=== PATIENT | male | born 1945 | race Hispanic/Latino ===

== ENCOUNTER 2019-04-07 08:27 | Day surgery (SDC) | payer MEDICARE ==
[2019-04-05 17:49] VITALS: BP 160/81
[2019-04-05 17:49] LABS: HEMATOCRIT 40.4 % (42-54); LYMPHOCYTES % (AUTO) 25.9 % (21.0-51.0); MEAN CORPUSCULAR HEMOGLOBIN 32.9 pg (27.0-33.0); MEAN CORPUSCULAR HGB CONC 34.1 g/dL (32.0-36.0); MEAN CORPUSCULAR VOLUME 96.5 fL (79-99); MONOCYTES % (AUTO) 7.8 % (3.0-13.0); NEUTROPHILS % (AUTO) 59.3 % (40.0-77.0); PLATELET COUNT (AUTO) 179 K/uL (130-400); RED BLOOD CELL COUNT(AUTO) 4.19 MIL/uL (4.50-6.20); RED CELL DISTRIBUTION WIDTH 13.6 % (11.0-15.5); WHITE BLOOD COUNT (AUTO) 5.7 K/uL (4.8-10.8)
[2019-04-05 17:56] LABS: CREATININE 1.2 mg/dL (0.5-1.5); POTASSIUM 4.6 mmol/L (3.5-5.1)
--- NOTE | 2019-04-05 18:39 | NUR ---
MEDS PT DID NOT BRING MEDS, STATED HE HAS NOT TAKEN HIS MEDS FOR 2 WEEKS, BP MED MAKES HIM FEEL BAD. ADVISED PT/DAUGHTER TO NOTIFY PCP THAT PT HAS NOT BEEN TAKING MEDS. DAUGHTER WILL CALL US FOR PT'S MEDS.
--- NOTE | 2019-04-05 18:52 | NUR ---
ABNORMAL EKG EKG RESULT REPORTED TO DR. BISHOP. NO FURTHER ORDERS GIVEN, MAY PROCEED WITH PLANNED PROCEDURE.
[~2019-04-07] VITALS: Ht 167.6 cm; Wt 75.9 kg
[2019-04-07] VITALS (15 sets, daily range): BP systolic 143–179; BP diastolic 77–97
[~2019-04-07 08:27] MED LIST: LISI1TAB28 PO; LOSA100T58 PO
[2019-04-07] MEDS ORDERED: LACTATED RINGERS 1000ML 1,000 ML IV ONE (08:35)
[2019-04-07] MEDS ORDERED: PROPOFOL 10 MG/ML 20ML VIAL IV ONE (09:03)
[2019-04-07] MEDS ORDERED: MIDAZOLAM HCL 1 MG/ML 2ML VIAL ONE (09:03)
[2019-04-07] MEDS ORDERED: FENTANYL CITRATE PF 50 MCG/1 ML 2ML VIAL ONE (09:04)
[2019-04-07] MEDS: CEFAZOLIN SODIUM 1 GM VIAL IVP ONE ×2 (09:05→09:08)
[2019-04-07] MEDS ORDERED: PHENAZOPYRIDINE HCL 200 MG TABLET ONE (11:04)
== END 2019-04-07 11:28 | disposition home or self-care (01) ==
LOC: DAH 08:27
PROVIDERS: ATTEND Urology
DX: N32.0 Bladder-neck obstruction (principal); N32.89 Other specified disorders of bladder; I10 Essential (primary) hypertension; I25.2 Old myocardial infarction; R33.9 Retention of urine, unspecified; Z85.46 Personal history of malignant neoplasm of prostate; Z90.79 Acquired absence of other genital organ(s); N35.919 Unspecified urethral stricture, male, unspecified site
CPT/HCPCS: 36415; 52276; 80048; 85025; 93005; A4215; A4221; A4222; A4223; A4344; A4354; A4358; A4510; A4600; A4663; A6260; J0690; J2250; J2704; J3010; J7120